=== PATIENT | female | born 1965 | race Caucasian/White ===

== ENCOUNTER 2016-03-19 11:52 | Emergency (ER) | payer MEDICAID ==
[~2016-03-19 11:52] MED LIST: AMOXICILLIN500 M2 PO; ANTIVERT/5050 MG PO; ANTIVERT25 MG PO; ATIVAN1 MG PO; B121000 MCG/1 IM; BACTRIM DS 8001 TA1 PO; BACTROBAN CREAM15 GM PO; BENZONATATE200 MG PO; BLOOD PRESSURE; CIPRO500 MG PO; CLARITIN10 MG PO; CLEOCIN150 MG PO; CLINDAMYCIN HC300 MG PO; CYCLOBENZAPRINE10 MG PO; DELTASONE50 MG PO; DEMADEX10 M1 PO; DOXYCYCLINE MO100 MG PO; DUONEB 3 MG/3 ML3 M1 INH; FERROUS SULFAT325 M1 PO; FLEXERIL10 MG PO; FLEXERIL5 MG PO; FLONASE ALLERG9.9 ML NAS; FLONASE0.05 MG/AC NS; FOSAMAX70 M1 PO; HCTZ; HYDROCODONE BIT1 T11 PO; HYDROXYZINE PAM50 MG PO; IBU800 MG PO; IBUPROFEN600 MG PO; IRON90 MG PO; KLONOPIN1 MG; KLONOPIN1 MG PO; KLONOPIN2 MG PO; KLOR-CON 1010 ME1 PO; LATUDA PO; LATUDA20 MG PO; LISINOPRIL10 MG PO; MEDROL DOSEPAK4 MG PO; METHOCARBAMOL750 MG PO; METOPROLOL SUCC25 M2 PO; MIRALAX POWDER17 G1 PO; MOTRIN600 MG PO; MOTRIN800 MG PO; NAPROSYN500 MG PO; NAPROXEN SODIU550 M1 PO; NEURONTIN100 MG PO; OCEAN104 ML NS; OMNICEF300 MG PO; OXY IR5 MG PO; PERCOCET 325 MG1 TA2 PO; PHENERGAN W/DM120 ML PO; PRILOSEC40 MG PO; PRISTIQ100 MG PO; PRISTIQ50 MG; PROAIR HFA0.09 MG/AC IH; PROAIR HFA0.09 MG/AC INH; PROMETHAZINE12.5 M5 PO; PROPRANOLOL HCL20 M1 PO; PYRIDIUM200 MG PO; QVAR 80MCG/INH7.3 G1 IH; RANITIDINE150 MG PO; ROBITUSSIN AC 110 ML PO; TRAZADONE HYDR100 MG PO; TRAZODONE150 MG PO; TUSSIN DM 10 M237 M1 PO; VICODIN ES 7501 TAB PO; VITAMIN D2400 IU PO; ZITHROMAX Z PA250 MG PO; ZITHROMAX250 MG PO; ZOVIRAX800 MG PO
[2016-03-19] MEDS ORDERED: DEMADEX10 M1 PO (12:01)
[2016-03-19] MEDS ORDERED: KLOR-CON 1010 ME1 PO (12:02)
[2016-03-19 12:37] LABS: BASO % 0.4 % (0.0-1.0); EOS # 0.2 10*3/uL (0.0-0.4); EOS % 1.3 % (1.0-4.0); HEMATOCRIT 33.8 % (37.0-47.0); HEMOGLOBIN 10.3 g/dl (12.0-16.0); LYMPH # 4.3 10*3/uL (1.3-4.4); LYMPH % 38.5 % (27.0-41.0); MEAN CELL VOLUME 76.8 fl (81.0-99.0); MEAN CORPUSCULAR HGB 23.4 pg (27.0-31.0); MEAN CORPUSCULAR HGB CONC 30.5 g/dl (33.0-37.0); MEAN PLATELET VOLUME 8.9 fl (9.6-12.3); MONO # 0.7 10*3/uL (0.1-1.0); NEUT % 53.5 % (47.0-73.0); PLATELET COUNT AUTOMATED 345 10*3/uL (130-400); RED CELL DISTRI WIDTH 16.5 % (0-14.5); WHITE BLOOD COUNT 11.2 10*3/uL (4.8-10.8)
[2016-03-19 13:01] LABS: ALBUMIN 3.3 gm/dl (3.1-4.5); ALKALINE PHOSPHATASE 95 U/L (45-117); BILIRUBIN, TOTAL 0.2 mg/dl (0.2-1.0); BUN 9 mg/dl (7-24); CARBON DIOXIDE 24 mmol/L (21-32); CHLORIDE 106 mmol/L (98-107); EST GLOM FILT AFRICAN AMERICAN > 60 ml/min; GLUCOSE 103 mg/dL (65-99); MAGNESIUM 1.7 mg/dL (1.5-2.1); POTASSIUM 4.2 mmol/L (3.5-5.1); SGOT/AST 12 IU/L (3-35); SGPT/ALT 25 U/L (12-78); SODIUM 140 mmol/L (136-145); TOTAL PROTEIN 7.2 gm/dL (6.4-8.2)
[2016-03-19 13:31] LABS: TROPONIN I < 0.015 ng/ml (<0.5)
[2016-03-19] MEDS ORDERED: VOLTAREN11 PO (13:52)
[2016-03-19] MEDS ORDERED: AVPAK AZITHROM250 M1 PO (13:52)
[2016-03-19] MEDS ORDERED: DUONEB 3 MG/3 ML3 M1 INH (13:52)
== END 2016-03-19 14:15 | disposition home or self-care (01) ==
LOC: ED 11:52
PROVIDERS: Student in an Organized Health Care Education/Training Program
DX: J44.1 Chronic obstructive pulmonary disease with (acute) exacerbation (principal); I10 Essential (primary) hypertension; D64.9 Anemia, unspecified; F17.200 Nicotine dependence, unspecified, uncomplicated; Z88.6 Allergy status to analgesic agent; Z88.8 Allergy status to other drugs, medicaments and biological substances; Z79.899 Other long term (current) drug therapy

== ENCOUNTER 2016-05-07 14:35 | Emergency (ER) | payer OTHER ==
[~2016-05-07] VITALS: Ht 167.6 cm; Wt 95.3 kg
[~2016-05-07 14:35] MED LIST changes: +AVPAK AZITHROM250 M1 PO; +VOLTAREN11 PO
[2016-05-07] MEDS ORDERED: Zofran4 MG PO (14:40)
[2016-05-07] MEDS ORDERED: IBUPROFEN600 MG PO (14:41)
[2016-05-07 15:15] LABS: HEMATOCRIT 30.7 % (37.0-47.0); HEMOGLOBIN 9.2 g/dl (12.0-16.0); MEAN CELL VOLUME 74.9 fl (81.0-99.0); MEAN CORPUSCULAR HGB 22.4 pg (27.0-31.0); PLATELET COUNT AUTOMATED 308 10*3/uL (130-400); RED CELL DISTRI WIDTH 16.7 % (0-14.5); WHITE BLOOD COUNT 12.7 10*3/uL (4.8-10.8)
[2016-05-07 15:30] LABS: ALBUMIN 3.3 gm/dl (3.1-4.5); ALKALINE PHOSPHATASE 94 U/L (45-117); BILIRUBIN, TOTAL 0.1 mg/dl (0.2-1.0); BUN 7 mg/dl (7-24); CARBON DIOXIDE 24 mmol/L (21-32); CHLORIDE 108 mmol/L (98-107); EST GLOM FILT AFRICAN AMERICAN > 60 ml/min; GLUCOSE 94 mg/dL (65-99); SGOT/AST 15 IU/L (3-35); SGPT/ALT 30 U/L (12-78); SODIUM 141 mmol/L (136-145); TOTAL PROTEIN 6.8 gm/dL (6.4-8.2)
[2016-05-07 15:40] LABS: BASOPHIL # 0.1 10*3/uL (0-0.1); BASOPHILS 1 % (0-1); EOSINOPHIL # 0.1 10*3/uL (0-0.4); EOSINOPHILS 1 % (1-4); LYMPHOCYTE # 5.5 10*3/uL (1.3-4.4); NEUTROPHILS 47 % (47-73); TOTAL CELLS COUNTED 100 #CELLS
[2016-05-07 15:41] LABS: HYPOCHROMIA SLIGHT; MICROCYTOSIS SLIGHT; PLATELET SUFFICIENCY NORMAL (NORMAL); POLYCHROMASIA SLIGHT
[2016-05-07] MEDS ORDERED: AUGMENTIN 875-875 MG PO (16:09)
== END 2016-05-07 17:03 | disposition home or self-care (01) ==
LOC: ED 14:35
PROVIDERS: Registered Nurse
DX: J20.9 Acute bronchitis, unspecified (principal); F17.200 Nicotine dependence, unspecified, uncomplicated; Z88.6 Allergy status to analgesic agent; Z90.49 Acquired absence of other specified parts of digestive tract; Z79.899 Other long term (current) drug therapy

== ENCOUNTER → 2016-06-14 | Outpatient (CLI) | payer MEDICAID ==
[~2016-06-14] MED LIST changes: +AUGMENTIN 875-875 MG PO; +Zofran4 MG PO
[2016-06-14 07:27] LABS: BASO # 0.1 10*3/uL (0.0-0.1); BASO % 0.5 % (0.0-1.0); EOS # 0.1 10*3/uL (0.0-0.4); EOS % 1.1 % (1.0-4.0); HEMATOCRIT 30.7 % (37.0-47.0); IG # 0.1 10*3/uL (0.0-0.1); LYMPH # 4.6 10*3/uL (1.3-4.4); LYMPH % 41.1 % (27.0-41.0); MEAN CELL VOLUME 74.7 fl (81.0-99.0); MEAN CORPUSCULAR HGB 21.9 pg (27.0-31.0); MEAN CORPUSCULAR HGB CONC 29.3 g/dl (33.0-37.0); MEAN PLATELET VOLUME 8.8 fl (9.6-12.3); MONO # 0.6 10*3/uL (0.1-1.0); MONO % 5.5 % (3.0-9.0); NEUT # 5.7 10*3/uL (2.3-7.9); NEUT % 51.2 % (47.0-73.0); PLATELET COUNT AUTOMATED 298 10*3/uL (130-400); RED BLOOD COUNT 4.11 10*6/uL (4.10-5.10); RED CELL DISTRI WIDTH 17.3 % (0-14.5); WHITE BLOOD COUNT 11.1 10*3/uL (4.8-10.8)
[2016-06-14 08:00] LABS: ALBUMIN 3.2 gm/dl (3.1-4.5); ALKALINE PHOSPHATASE 94 U/L (45-117); BILIRUBIN, TOTAL 0.2 mg/dl (0.2-1.0); BUN 7 mg/dl (7-24); CARBON DIOXIDE 27 mmol/L (21-32); CHLORIDE 107 mmol/L (98-107); EST GLOM FILT AFRICAN AMERICAN > 60 ml/min; GLUCOSE 101 mg/dL (65-99); POTASSIUM 4.3 mmol/L (3.5-5.1); SGOT/AST 21 IU/L (3-35); SGPT/ALT 32 U/L (12-78); SODIUM 139 mmol/L (136-145); TOTAL PROTEIN 6.5 gm/dL (6.4-8.2)
== END | disposition home or self-care (01) ==
LOC: LAB 07:04
PROVIDERS: Family Medicine
DX: G43.009 Migraine without aura, not intractable, without status migrainosus (principal); E83.52 Hypercalcemia; Z72.0 Tobacco use

== ENCOUNTER 2016-07-06 05:37 | Inpatient (IN) | payer OTHER ==
[~2016-07-06] VITALS: Ht 167.6 cm; Wt 101.7 kg
[2016-07-06 05:40] VITALS: BP 156/78
[2016-07-06] MEDS ORDERED: FOSAMAX70 M1 PO (05:58)
[2016-07-06] MEDS ORDERED: BUTALBIT-ACETA1 EACH PO (05:59)
[2016-07-06] MEDS ORDERED: IMITREX50 MG PO (05:59)
[2016-07-06] MEDS ORDERED: METOPROLOL TART50 M1 PO (06:05)
[2016-07-06 06:07] LABS: BASO # 0.1 10*3/uL (0.0-0.1); BASO % 0.5 % (0.0-1.0); EOS # 0.1 10*3/uL (0.0-0.4); HEMOGLOBIN 9.4 g/dl (12.0-16.0); IG # 0.1 10*3/uL (0.0-0.1); LYMPH # 4.1 10*3/uL (1.3-4.4); LYMPH % 35.2 % (27.0-41.0); MEAN CELL VOLUME 74.3 fl (81.0-99.0); MEAN CORPUSCULAR HGB 21.2 pg (27.0-31.0); MEAN CORPUSCULAR HGB CONC 28.5 g/dl (33.0-37.0); MEAN PLATELET VOLUME 8.9 fl (9.6-12.3); MONO # 0.8 10*3/uL (0.1-1.0); MONO % 7.2 % (3.0-9.0); NEUT # 6.4 10*3/uL (2.3-7.9); NEUT % 55.3 % (47.0-73.0); PLATELET COUNT AUTOMATED 294 10*3/uL (130-400); RED BLOOD COUNT 4.44 10*6/uL (4.10-5.10); RED CELL DISTRI WIDTH 17.9 % (0-14.5); WHITE BLOOD COUNT 11.6 10*3/uL (4.8-10.8)
[2016-07-06 06:15] LABS: INTERNATIONAL NORM RATIO 0.9 (2.0-3.5); PROTHROMBIN TIME 9.9 SECONDS (9.0-12.4)
[2016-07-06 06:19] LABS: ALBUMIN 3.3 gm/dl (3.1-4.5); ALKALINE PHOSPHATASE 98 U/L (45-117); BILIRUBIN, TOTAL 0.2 mg/dl (0.2-1.0); BUN 8 mg/dl (7-24); CARBON DIOXIDE 27 mmol/L (21-32); CHLORIDE 107 mmol/L (98-107); EST GLOM FILT AFRICAN AMERICAN > 60 ml/min; GLUCOSE 98 mg/dL (65-99); MAGNESIUM 1.6 mg/dL (1.5-2.1); POTASSIUM 3.4 mmol/L (3.5-5.1); SGOT/AST 19 IU/L (3-35); SGPT/ALT 25 U/L (12-78); SODIUM 139 mmol/L (136-145); TOTAL PROTEIN 6.9 gm/dL (6.4-8.2)
[2016-07-06 06:20] VITALS: BP 126/71
[2016-07-06 06:22] LABS: TROPONIN I < 0.015 ng/ml (<0.045)
[2016-07-06 06:45] VITALS: BP 133/79
[2016-07-06 07:22] VITALS: BP 128/85
[2016-07-06 08:00] VITALS: BP 133/70
[2016-07-06] MEDS ORDERED: NEURONTIN300 MG PO (08:21)
[2016-07-06 12:00] VITALS: BP 124/72
[2016-07-06 12:01] LABS: CPK 35 U/L (26-192)
[2016-07-06 12:03] LABS: CKMB < 0.5 ng/ml (0.5-3.6); TROPONIN I < 0.015 ng/ml (<0.045)
[2016-07-06] MEDS ORDERED: OMEPRAZOLE40 MG PO (12:09)
== END 2016-07-06 14:35 | disposition home health service (06) | DRG 313 ==
LOC: ED 05:37 → 4E 06:32 → EDHOLD 06:32 → 4E 07:20
PROVIDERS: Emergency Medicine Emergency Medical Services; Hospitalist
DX: R07.89 Other chest pain (principal); J96.10 Chronic respiratory failure, unspecified whether with hypoxia or hypercapnia; E44.0 Moderate protein-calorie malnutrition; Z99.81 Dependence on supplemental oxygen; J43.9 Emphysema, unspecified; I10 Essential (primary) hypertension; D50.9 Iron deficiency anemia, unspecified; F17.200 Nicotine dependence, unspecified, uncomplicated; E87.6 Hypokalemia; D72.829 Elevated white blood cell count, unspecified; R00.0 Tachycardia, unspecified; Z90.49 Acquired absence of other specified parts of digestive tract; Z82.49 Family history of ischemic heart disease and other diseases of the circulatory system; Z88.6 Allergy status to analgesic agent; Z88.8 Allergy status to other drugs, medicaments and biological substances; Z79.51 Long term (current) use of inhaled steroids; Z79.1 Long term (current) use of non-steroidal anti-inflammatories (NSAID); Z79.899 Other long term (current) drug therapy; Z71.6 Tobacco abuse counseling; Z68.36 Body mass index [BMI] 36.0-36.9, adult

== ENCOUNTER → 2016-07-31 | Outpatient (CLI) | payer OTHER ==
[~2016-07-31] MED LIST changes: +BUTALBIT-ACETA1 EACH PO; +IMITREX50 MG PO; +METOPROLOL TART50 M1 PO; +NEURONTIN300 MG PO; +OMEPRAZOLE40 MG PO
[2016-07-31 11:26] LABS: IRON 30 ug/dL (50-170); IRON SATURATION 5 %; UIBC 543 ug/dL (110-365)
== END | disposition home or self-care (01) ==
LOC: LAB 10:23
PROVIDERS: Internal Medicine Hematology & Oncology
DX: D64.9 Anemia, unspecified (principal); D83.9 Common variable immunodeficiency, unspecified

== ENCOUNTER → 2016-08-04 | Outpatient (CLI) | payer OTHER ==
[2016-08-04 16:40] LABS: BASO # 0.1 10*3/uL (0.0-0.1); BASO % 0.5 % (0.0-1.0); EOS # 0.2 10*3/uL (0.0-0.4); EOS % 1.4 % (1.0-4.0); HEMATOCRIT 34.2 % (37.0-47.0); HEMOGLOBIN 9.8 g/dl (12.0-16.0); IG # 0.1 10*3/uL (0.0-0.1); LYMPH # 4.9 10*3/uL (1.3-4.4); LYMPH % 41.7 % (27.0-41.0); MEAN CELL VOLUME 74.7 fl (81.0-99.0); MEAN CORPUSCULAR HGB 21.4 pg (27.0-31.0); MEAN CORPUSCULAR HGB CONC 28.7 g/dl (33.0-37.0); MEAN PLATELET VOLUME 9.1 fl (9.6-12.3); MONO # 0.7 10*3/uL (0.1-1.0); NEUT # 5.8 10*3/uL (2.3-7.9); PLATELET COUNT AUTOMATED 273 10*3/uL (130-400); RED BLOOD COUNT 4.58 10*6/uL (4.10-5.10); RED CELL DISTRI WIDTH 17.9 % (0-14.5); WHITE BLOOD COUNT 11.6 10*3/uL (4.8-10.8)
== END | disposition home or self-care (01) ==
LOC: LAB 16:23
PROVIDERS: Internal Medicine Hematology & Oncology
DX: D50.9 Iron deficiency anemia, unspecified (principal)

== ENCOUNTER 2016-08-27 15:41 | Emergency (ER) | payer OTHER ==
[~2016-08-27] VITALS: Wt 99.8 kg
[2016-08-27 16:25] LABS: BASO % 0.2 % (0.0-1.0); EOS # 0.2 10*3/uL (0.0-0.4); EOS % 1.2 % (1.0-4.0); HEMATOCRIT 33.3 % (37.0-47.0); HEMOGLOBIN 9.5 g/dl (12.0-16.0); IG # 0.1 10*3/uL (0.0-0.1); LYMPH # 4.2 10*3/uL (1.3-4.4); LYMPH % 29.7 % (27.0-41.0); MEAN CELL VOLUME 74.8 fl (81.0-99.0); MEAN CORPUSCULAR HGB 21.3 pg (27.0-31.0); MEAN CORPUSCULAR HGB CONC 28.5 g/dl (33.0-37.0); MEAN PLATELET VOLUME 8.7 fl (9.6-12.3); MONO # 1.1 10*3/uL (0.1-1.0); MONO % 8.1 % (3.0-9.0); NEUT # 8.5 10*3/uL (2.3-7.9); NEUT % 60.3 % (47.0-73.0); PLATELET COUNT AUTOMATED 280 10*3/uL (130-400); RED BLOOD COUNT 4.45 10*6/uL (4.10-5.10); RED CELL DISTRI WIDTH 18.3 % (0-14.5); WHITE BLOOD COUNT 14.2 10*3/uL (4.8-10.8)
[2016-08-27 16:39] LABS: ALBUMIN 3.3 gm/dl (3.1-4.5); ALKALINE PHOSPHATASE 117 U/L (45-117); BILIRUBIN, TOTAL 0.2 mg/dl (0.2-1.0); BUN 7 mg/dl (7-24); CARBON DIOXIDE 24 mmol/L (21-32); CHLORIDE 106 mmol/L (98-107); EST GLOM FILT AFRICAN AMERICAN > 60 ml/min; GLUCOSE 100 mg/dL (65-99); POTASSIUM 3.9 mmol/L (3.5-5.1); SGOT/AST 24 IU/L (3-35); SGPT/ALT 28 U/L (12-78); SODIUM 142 mmol/L (136-145); TOTAL PROTEIN 7.2 gm/dL (6.4-8.2)
[2016-08-27] MEDS ORDERED: ROBITUSSIN5 ML PO (17:14)
[2016-08-27] MEDS ORDERED: CYCLOBENZAPRINE10 MG PO (17:14)
[2016-08-27] MEDS ORDERED: DUONEB 3 MG/3 ML3 M1 INH (17:14)
[2016-08-27] MEDS ORDERED: DOXYCYCLINE100 M3 PO (17:14)
== END 2016-08-27 17:25 | disposition home or self-care (01) ==
LOC: ED 15:41
PROVIDERS: Registered Nurse
DX: J20.9 Acute bronchitis, unspecified (principal); D72.829 Elevated white blood cell count, unspecified; R53.83 Other fatigue; H92.02 Otalgia, left ear; R53.1 Weakness; F17.210 Nicotine dependence, cigarettes, uncomplicated; Z88.6 Allergy status to analgesic agent; Z88.8 Allergy status to other drugs, medicaments and biological substances; Z79.899 Other long term (current) drug therapy

== ENCOUNTER → 2016-09-19 | Day surgery (SDC) | payer OTHER ==
[2016-09-14 10:41] LABS: BILIRUBIN NEGATIVE (NEGATIVE); BLOOD NEGATIVE (NEGATIVE); CLARITY SL CLOUDY (CLEAR); COLOR YELLOW (YELLOW); GLUCOSE NEGATIVE (NEGATIVE); KETONE NEGATIVE (NEGATIVE); LEUKO ESTERASE NEGATIVE (NEGATIVE); NITRITE NEGATIVE (NEGATIVE); PROTEIN NEGATIVE (NEGATIVE); SPECIFIC GRAVITY <= 1.005 (1.005-1.030); UROBILINOGEN 0.2 E.U./dl (0.2-1.0)
[2016-09-14 10:43] LABS: BASO # 0.1 10*3/uL (0.0-0.1); BASO % 0.4 % (0.0-1.0); EOS # 0.1 10*3/uL (0.0-0.4); EOS % 0.8 % (1.0-4.0); HEMATOCRIT 37.5 % (37.0-47.0); HEMOGLOBIN 10.9 g/dl (12.0-16.0); IG # 0.1 10*3/uL (0.0-0.1); LYMPH # 4.4 10*3/uL (1.3-4.4); LYMPH % 37.1 % (27.0-41.0); MEAN CELL VOLUME 75.3 fl (81.0-99.0); MEAN CORPUSCULAR HGB 21.9 pg (27.0-31.0); MEAN CORPUSCULAR HGB CONC 29.1 g/dl (33.0-37.0); MONO # 0.6 10*3/uL (0.1-1.0); MONO % 4.8 % (3.0-9.0); NEUT # 6.7 10*3/uL (2.3-7.9); NEUT % 56.1 % (47.0-73.0); PLATELET COUNT AUTOMATED 350 10*3/uL (130-400); RED BLOOD COUNT 4.98 10*6/uL (4.10-5.10); RED CELL DISTRI WIDTH 20.3 % (0-14.5); WHITE BLOOD COUNT 11.9 10*3/uL (4.8-10.8)
[2016-09-14 11:02] LABS: BUN 8 mg/dl (7-24); CARBON DIOXIDE 25 mmol/L (21-32); CHLORIDE 106 mmol/L (98-107); EST GLOM FILT AFRICAN AMERICAN > 60 ml/min; GLUCOSE 103 mg/dL (65-99); POTASSIUM 4.2 mmol/L (3.5-5.1); SODIUM 138 mmol/L (136-145)
[2016-09-14 11:08] LABS: INTERNATIONAL NORM RATIO 0.9 (2.0-3.5)
[2016-09-14 11:57] LABS: BACTERIA TRACE
[~2016-09-19] MED LIST changes: +DOXYCYCLINE100 M3 PO; +ROBITUSSIN5 ML PO
--- NOTE | ~2016-09-19 | PROC NOTE ---
[place], [place] PROCEDURE NOTE NAME: SANDIE NGUYEN UNIT #: [id number] ROOM: DOCTOR: SANYA DEXTER MD BIRTHDATE: [birth year] DOS: 09/19/2016 PREOPERATIVE DIAGNOSES: Anemia, poor peripheral IV access. POSTOPERATIVE DIAGNOSES: Anemia, poor peripheral IV access. PROCEDURE: Left internal jugular MediPort placement. SURGEON: Sanya Dexter MD GENERAL FOREMAN: None. ANESTHESIA: MAC with local. INDICATIONS: This is a 51-year-old lady who has got history of chronic anemia needing frequent blood transfusions and blood draws, who is here for MediPort placement. She has poor IV access. The procedure and its complications explained to the patient and her in detail preoperatively. Complications that were discussed included but were not limited to bleeding, infection, port infection, hemothorax, pneumothorax and prolonged pain. She agreed to proceed. DESCRIPTION OF PROCEDURE: After identifying the patient, the patient was brought to the operating suite and laid in the supine position. After time-out procedure was called, the parts were then painted and draped in the usual sterile fashion. With the help of an ultrasound probe, the left internal jugular vein was accessed with the help of a needle. A guidewire was placed and with the help of fluoroscopy, it was found to be in good position. A pocket was created 3 finger breaths below the left clavicle after injecting 1% plain lidocaine. After adequate pocket was created, the catheter was passed through this pocket into the access site of the internal jugular vein in the neck. A sheath was passed over the wire and then the wire was removed. The catheter was then passed through the sheath till it was in appropriate position that was confirmed on fluoroscopy. The sheath was removed and port was then attached to the end of the catheter and was fixed to the underlying chest wall fascia with the help of 3-0 Prolene in an interrupted fashion. Thereafter, the port was injected with heparin and was found to have good flow and also good blood draw. Thereafter, the subcutaneous tissue was approximated with the help of 3-0 Vicryl in a running fashion and the skin edges were approximated with the help of 4-0 Vicryl in a subcuticular running fashion. Dressings were placed. Another fluoroscopic confirmation of the port was performed and the patient was then brought back to the recovery room in a stable fashion. There were no complications. Dr. Sanya Dexter, the attending surgeon, was present throughout the operating case. The chest x-ray was ordered for the recovery room. [place], [place] PROCEDURE NOTE NAME: SANDIE NGUYEN UNIT #: [id number] ROOM: DOCTOR: SANYA DEXTER MD BIRTHDATE: [birth year] Sanya Dexter MD CM:PROCNOTE:PROCEDURE NOTE [id number] SANYA DEXTER MD
[2016-09-19 09:15] VITALS: BP 127/68
[2016-09-19 10:55] VITALS: BP 117/60
[2016-09-19 11:10] VITALS: BP 127/69
[2016-09-19 11:22] VITALS: BP 126/43
== END | disposition home or self-care (01) ==
LOC: CANPRESDC → SDC 09-14 09:30 → LAB 09-15 09:30 → SDC 09-15 10:30
PROVIDERS: Surgery
DX: D64.9 Anemia, unspecified (principal); I87.9 Disorder of vein, unspecified; J44.9 Chronic obstructive pulmonary disease, unspecified; Z98.51 Tubal ligation status; Z90.49 Acquired absence of other specified parts of digestive tract; Z98.890 Other specified postprocedural states; Z79.899 Other long term (current) drug therapy; I10 Essential (primary) hypertension; F41.9 Anxiety disorder, unspecified; F17.210 Nicotine dependence, cigarettes, uncomplicated; F31.9 Bipolar disorder, unspecified; Z82.49 Family history of ischemic heart disease and other diseases of the circulatory system

== ENCOUNTER 2017-02-06 17:55 | Emergency (ER) | payer OTHER ==
[~2017-02-06] VITALS: Ht 167.6 cm; Wt 90.7 kg
[2017-02-06 18:29] LABS: BASO % 0.3 % (0.0-1.0); EOS # 0.4 10*3/uL (0.0-0.4); EOS % 3.6 % (1.0-4.0); HEMATOCRIT 34.3 % (37.0-47.0); HEMOGLOBIN 10.6 g/dl (12.0-16.0); LYMPH # 4.5 10*3/uL (1.3-4.4); LYMPH % 38.2 % (27.0-41.0); MEAN CELL VOLUME 77.4 fl (81.0-99.0); MEAN CORPUSCULAR HGB 23.9 pg (27.0-31.0); MEAN CORPUSCULAR HGB CONC 30.9 g/dl (33.0-37.0); MEAN PLATELET VOLUME 8.7 fl (9.6-12.3); MONO # 0.7 10*3/uL (0.1-1.0); NEUT # 6.1 10*3/uL (2.3-7.9); NEUT % 51.1 % (47.0-73.0); PLATELET COUNT AUTOMATED 320 10*3/uL (130-400); RED BLOOD COUNT 4.43 10*6/uL (4.10-5.10); RED CELL DISTRI WIDTH 17.9 % (0-14.5); WHITE BLOOD COUNT 11.9 10*3/uL (4.8-10.8)
[2017-02-06 18:34] LABS: BILIRUBIN NEGATIVE (NEGATIVE); BLOOD NEGATIVE (NEGATIVE); CLARITY CLEAR (CLEAR); COLOR YELLOW (YELLOW); GLUCOSE NEGATIVE (NEGATIVE); KETONE NEGATIVE (NEGATIVE); LEUKO ESTERASE TRACE (NEGATIVE); NITRITE NEGATIVE (NEGATIVE); PH 5.5 (5.0-9.0); SPECIFIC GRAVITY <= 1.005 (1.005-1.030); UROBILINOGEN 0.2 E.U./dl (0.2-1.0)
[2017-02-06 18:44] LABS: ALBUMIN 3.2 gm/dl (3.1-4.5); ALKALINE PHOSPHATASE 113 U/L (45-117); BUN 7 mg/dl (7-24); CHLORIDE 105 mmol/L (98-107); CREATININE 0.91 mg/dL (0.55-1.02); LIPASE 181 U/L (73-393); POTASSIUM 3.9 mmol/L (3.5-5.1); SGOT/AST 10 IU/L (3-35); SGPT/ALT 24 U/L (12-78); SODIUM 139 mmol/L (136-145)
[2017-02-06 18:45] LABS: BACTERIA TRACE; YEAST 1+
== END 2017-02-06 20:07 | disposition home or self-care (01) ==
LOC: ED 17:55
PROVIDERS: Physician Assistant
DX: L03.311 Cellulitis of abdominal wall (principal); R60.0 Localized edema; F17.200 Nicotine dependence, unspecified, uncomplicated; Z88.6 Allergy status to analgesic agent; Z79.899 Other long term (current) drug therapy; Z88.8 Allergy status to other drugs, medicaments and biological substances; Z98.890 Other specified postprocedural states; Z90.49 Acquired absence of other specified parts of digestive tract

== ENCOUNTER 2018-03-10 23:24 | Emergency (ER) | payer OTHER ==
[~2018-03-10] VITALS: Ht 167.6 cm; Wt 99.3 kg
[2018-03-11 00:25] LABS: HEMATOCRIT 42.4 % (37.0-47.0); HEMOGLOBIN 13.2 g/dl (12.0-16.0); MEAN CELL VOLUME 83.8 fl (81.0-99.0); MEAN CORPUSCULAR HGB 26.1 pg (27.0-31.0); MEAN CORPUSCULAR HGB CONC 31.1 g/dl (33.0-37.0); MEAN PLATELET VOLUME 9.1 fl (9.6-12.3); PLATELET COUNT AUTOMATED 319 10*3/uL (130-400); RED BLOOD COUNT 5.06 10*6/uL (4.10-5.10); RED CELL DISTRI WIDTH 16.1 % (0-14.5); WHITE BLOOD COUNT 10.6 10*3/uL (4.8-10.8)
[2018-03-11 00:40] LABS: ALBUMIN 3.6 gm/dl (3.1-4.5); ALKALINE PHOSPHATASE 96 U/L (45-117); BUN 13 mg/dl (7-24); CHLORIDE 107 mmol/L (98-107); CREATININE 1.01 mg/dL (0.55-1.02); LIPASE 201 U/L (73-393); POTASSIUM 3.8 mmol/L (3.5-5.1); SGOT/AST 20 IU/L (3-35); SGPT/ALT 37 U/L (12-78); SODIUM 139 mmol/L (136-145); TOTAL PROTEIN 7.8 gm/dL (6.4-8.2)
[2018-03-11 00:46] LABS: PLATELET SUFFICIENCY NORMAL (NORMAL); TOTAL CELLS COUNTED 100 #CELLS
[2018-03-11 01:57] LABS: BILIRUBIN NEGATIVE (NEGATIVE); BLOOD 1+ (NEGATIVE); CLARITY SL CLOUDY (CLEAR); COLOR YELLOW (YELLOW); GLUCOSE NEGATIVE (NEGATIVE); KETONE NEGATIVE (NEGATIVE); LEUKO ESTERASE NEGATIVE (NEGATIVE); NITRITE NEGATIVE (NEGATIVE); SPECIFIC GRAVITY 1.025 (1.005-1.030); UROBILINOGEN 0.2 E.U./dl (0.2-1.0)
[2018-03-11 02:03] LABS: EPITHELIAL CELLS 15-20
[2018-03-11 02:04] LABS: RBC 16-20 rbc/hpf (0-2); WBC 0-2 wbc/hpf (0-5)
[2018-04-23] MEDS ORDERED: PYRIDIUM200 M1 PO (12:09)
[2018-04-23] MEDS ORDERED: AMINOPHYLLIN200 MG PO (12:09)
== END 2018-03-11 04:02 | disposition short-term general hospital (02) ==
LOC: ED 23:24
PROVIDERS: Emergency Medicine
DX: N13.9 Obstructive and reflux uropathy, unspecified (principal); J44.9 Chronic obstructive pulmonary disease, unspecified; I10 Essential (primary) hypertension; F17.200 Nicotine dependence, unspecified, uncomplicated; Z88.8 Allergy status to other drugs, medicaments and biological substances; Z88.6 Allergy status to analgesic agent; Z79.899 Other long term (current) drug therapy

== ENCOUNTER 2019-01-07 14:45 | Emergency (ER) | payer OTHER ==
[~2019-01-07] VITALS: Ht 167.6 cm; Wt 95.7 kg
[~2019-01-07 14:45] MED LIST changes: +AMINOPHYLLIN200 MG PO; +PYRIDIUM200 M1 PO
[2019-01-07 15:52] LABS: HEMATOCRIT 39.2 % (37.0-47.0); HEMOGLOBIN 12.3 g/dl (12.0-16.0); MEAN CELL VOLUME 84.1 fl (81.0-99.0); MEAN CORPUSCULAR HGB 26.4 pg (27.0-31.0); MEAN CORPUSCULAR HGB CONC 31.4 g/dl (33.0-37.0); MEAN PLATELET VOLUME 9.1 fl (9.6-12.3); PLATELET COUNT AUTOMATED 290 10*3/uL (130-400); RED BLOOD COUNT 4.66 10*6/uL (4.10-5.10); RED CELL DISTRI WIDTH 15.1 % (0-14.5); WHITE BLOOD COUNT 12.7 10*3/uL (4.8-10.8)
[2019-01-07 16:09] LABS: ALBUMIN 3.4 gm/dl (3.1-4.5); ALKALINE PHOSPHATASE 101 U/L (45-117); BUN 12 mg/dl (7-24); CHLORIDE 105 mmol/L (98-107); CREATININE 0.98 mg/dL (0.55-1.02); SGOT/AST 18 IU/L (3-35); SGPT/ALT 33 U/L (12-78); SODIUM 139 mmol/L (136-145); TOTAL PROTEIN 7.2 gm/dL (6.4-8.2)
[2019-01-07 16:24] LABS: ATYPICAL LYMPHS 2 % (0-0); TOTAL CELLS COUNTED 100 #CELLS
[2019-01-07 16:25] LABS: PLATELET SUFFICIENCY NORMAL (NORMAL)
== END 2019-01-07 18:06 | disposition home or self-care (01) ==
LOC: ED 14:45
PROVIDERS: Nurse Practitioner Family
DX: R59.0 Localized enlarged lymph nodes (principal); J44.9 Chronic obstructive pulmonary disease, unspecified; I10 Essential (primary) hypertension; K21.9 Gastro-esophageal reflux disease without esophagitis; F17.200 Nicotine dependence, unspecified, uncomplicated; Z88.8 Allergy status to other drugs, medicaments and biological substances; Z88.5 Allergy status to narcotic agent; Z88.6 Allergy status to analgesic agent; Z79.899 Other long term (current) drug therapy; Z79.2 Long term (current) use of antibiotics

== ENCOUNTER 2020-05-30 09:05 | Emergency (ER) | payer OTHER ==
[~2020-05-30] VITALS: Ht 165.1 cm; Wt 132.0 kg
[2020-05-30 09:41] LABS: BASO % 0.3 % (0.0-1.0); EOS # 0.1 10*3/uL (0.0-0.4); EOS % 1.3 % (1.0-4.0); HEMATOCRIT 45.9 % (37.0-47.0); LYMPH # 3.8 10*3/uL (1.3-4.4); LYMPH % 37.4 % (27.0-41.0); MEAN CELL VOLUME 86.3 fl (81.0-99.0); MEAN CORPUSCULAR HGB 27.8 pg (27.0-31.0); MEAN CORPUSCULAR HGB CONC 32.2 g/dl (33.0-37.0); MEAN PLATELET VOLUME 8.8 fl (9.6-12.3); MONO # 0.7 10*3/uL (0.1-1.0); MONO % 6.7 % (3.0-9.0); NEUT # 5.6 10*3/uL (2.3-7.9); NEUT % 54.1 % (47.0-73.0); PLATELET COUNT AUTOMATED 239 10*3/uL (130-400); RED BLOOD COUNT 5.32 10*6/uL (4.10-5.10); RED CELL DISTRI WIDTH 13.7 % (0-14.5); WHITE BLOOD COUNT 10.3 10*3/uL (4.8-10.8)
[2020-05-30 10:04] LABS: ALBUMIN 3.8 gm/dl (3.1-4.5); ALKALINE PHOSPHATASE 110 U/L (45-117); BUN 8 mg/dl (7-24); CHLORIDE 109 mmol/L (98-107); CREATININE 0.85 mg/dL (0.55-1.02); POTASSIUM 3.5 mmol/L (3.5-5.1); SGOT/AST 14 IU/L (3-35); SGPT/ALT 29 U/L (12-78); SODIUM 138 mmol/L (136-145); TOTAL PROTEIN 7.7 gm/dL (6.4-8.2)
[2020-05-30] MEDS ORDERED: ELIQUIS5 M1 PO (11:49)
== END 2020-05-30 12:00 | disposition home or self-care (01) ==
LOC: ED 09:05
PROVIDERS: Emergency Medicine
DX: I82.622 Acute embolism and thrombosis of deep veins of left upper extremity (principal); J44.9 Chronic obstructive pulmonary disease, unspecified; I10 Essential (primary) hypertension; K21.9 Gastro-esophageal reflux disease without esophagitis; F31.9 Bipolar disorder, unspecified; F17.200 Nicotine dependence, unspecified, uncomplicated; Z88.8 Allergy status to other drugs, medicaments and biological substances; Z88.5 Allergy status to narcotic agent; Z79.899 Other long term (current) drug therapy; Z90.49 Acquired absence of other specified parts of digestive tract; Z98.890 Other specified postprocedural states

== ENCOUNTER 2020-06-06 18:29 | Emergency (ER) | payer OTHER ==
[~2020-06-06] VITALS: Ht 167.6 cm; Wt 83.9 kg
[~2020-06-06 18:29] MED LIST changes: +ELIQUIS5 M1 PO
[2020-06-06 19:10] LABS: BILIRUBIN Negative (Negative); BLOOD 3+ (Negative); CLARITY Clear (Clear); COLOR Yellow (Yellow); GLUCOSE Negative (Negative); KETONE Negative (Negative); LEUKO ESTERASE Trace (Negative); NITRITE Negative (Negative); PH 6.5 (4.5-8.0)
[2020-06-06 19:15] LABS: EPITHELIAL CELLS 16-20; RBC 41-50 rbc/hpf (0-2)
[2020-06-06 19:16] LABS: BACTERIA TRACE
[2020-06-06 19:25] LABS: HEMATOCRIT 44.5 % (37.0-47.0); MEAN CELL VOLUME 86.6 fl (81.0-99.0); MEAN CORPUSCULAR HGB 27.2 pg (27.0-31.0); MEAN CORPUSCULAR HGB CONC 31.5 g/dl (33.0-37.0); MEAN PLATELET VOLUME 8.9 fl (9.6-12.3); PLATELET COUNT AUTOMATED 326 10*3/uL (130-400); RED BLOOD COUNT 5.14 10*6/uL (4.10-5.10); RED CELL DISTRI WIDTH 13.2 % (0-14.5); WHITE BLOOD COUNT 12.5 10*3/uL (4.8-10.8)
[2020-06-06 19:42] LABS: ALBUMIN 3.5 gm/dl (3.1-4.5); ALKALINE PHOSPHATASE 128 U/L (45-117); BUN 6 mg/dl (7-24); CHLORIDE 109 mmol/L (98-107); CREATININE 0.76 mg/dL (0.55-1.02); POTASSIUM 3.5 mmol/L (3.5-5.1); SGOT/AST 9 IU/L (3-35); SGPT/ALT 25 U/L (12-78); SODIUM 139 mmol/L (136-145); TOTAL PROTEIN 8.1 gm/dL (6.4-8.2)
[2020-06-06 19:43] LABS: FREE T4 1.02 ng/dl (0.76-1.46)
[2020-06-06 19:49] LABS: THYROID STIM HORMONE (HS) 0.786 uIU/ml (0.358-4.75)
[2020-06-06 19:52] LABS: ATYPICAL LYMPHS 1 % (0-0); TOTAL CELLS COUNTED 100 #CELLS
[2020-06-06 19:53] LABS: PLATELET SUFFICIENCY NORMAL (NORMAL)
== END 2020-06-06 22:02 | disposition left against medical advice (07) ==
LOC: ED 18:29
PROVIDERS: Physician Assistant
DX: R50.9 Fever, unspecified (principal); Z53.29 Procedure and treatment not carried out because of patient's decision for other reasons; Z88.8 Allergy status to other drugs, medicaments and biological substances; Z88.5 Allergy status to narcotic agent; Z88.6 Allergy status to analgesic agent; Z79.899 Other long term (current) drug therapy; Z90.49 Acquired absence of other specified parts of digestive tract; Z98.890 Other specified postprocedural states